=== PATIENT | female | born 1975 | race Hispanic/Latino ===

== ENCOUNTER 2017-05-28 13:27 | Inpatient (IN) | payer SELFPAY ==
[2017-05-28] MEDS ORDERED: Clindamycin/D5W 900 mg/50 ml Premix Bag ONE (15:04)
[2017-05-28] MEDS ORDERED: Levofloxacin 500 mg/D5W 100 ml Premix Bag ONE (15:04)
[2017-05-28] MEDS ORDERED: Midazolam HCl 2 mg/2 ml Vial ONE ×2 (15:07→15:23)
[2017-05-28] MEDS ORDERED: Bupivacaine PF 0.5% 30 ML VIAL ONE (15:20)
[2017-05-28] MEDS ORDERED: Fentanyl 100 MCG/2 ML VIAL ONE ×2 (15:23→16:37)
[2017-05-28] MEDS ORDERED: Lidocaine 2% PF 10 ML AMP (For Epidural Use) ONE (15:46)
[2017-05-28] MEDS ORDERED: Ondansetron HCl/PF 4 MG/2 ML Vial ONE (15:46)
[2017-05-28] MEDS ORDERED: Dexamethasone 20 MG/5 ML VIAL ONE (15:46)
[2017-05-28] MEDS ORDERED: Propofol 200 MG/20 ML VIAL ONE (15:46)
[2017-05-28] MEDS ORDERED: HYDROmorphone 2 MG/ML VIAL SLOW IVP PRN (16:09)
[2017-05-28] MEDS ORDERED: Ondansetron HCl/PF 4 MG/2 ML Vial IVP PRN (16:09)
[2017-05-28] MEDS ORDERED: Promethazine HCl 25 MG/ML VIAL SLOW IVP PRN (16:09)
[2017-05-28] MEDS ORDERED: Promethazine HCl 25 MG/ML VIAL IM PRN (16:09)
[2017-05-28] MEDS ORDERED: HYDROcodone/Acetaminophen 10/325 mg Tablet PO PRN (16:59)
[2017-05-28] MEDS ORDERED: Morphine Sulfate 2 MG/ML SYRINGE SLOW IVP PRN (16:59)
[2017-05-28] MEDS: Clindamycin/D5W 900 MG in Premix Bag 1 BAG IVPB SCH ×2 (19:35→23:59)
--- NOTE | 2017-05-28 20:06 | OP ---
DATE OF SURGERY: 05/28/2017 PREOPERATIVE DIAGNOSIS: Right medial ankle wound dehiscence. POSTOPERATIVE DIAGNOSIS: Right medial ankle wound dehiscence. SURGICAL PROCEDURE: Irrigation and debridement of right medial ankle wound. ANESTHESIA: General. SURGEON: Jesse Still M.D. SENIOR SOFTWARE TEST ENGINEER: Tucker John PA-C TOURNIQUET TIME: Zero. ESTIMATED BLOOD LOSS: 20 mL COMPLICATIONS: None. DRAINS: None. SPECIMEN: None. OUTCOME: Satisfactory. INDICATIONS: Patient is a 41-year-old lady status post intra-articular distal tibia fracture treate d with an external fixator until soft tissue swelling resolved and then converted to open reduction internal fixation. Patient has gone on to develop what appears to be a reaction to Vicryl sutures w ith multiple small stitch abscesses and one more centrally located stitch abscess that is now lead t o a wound dehiscence. We have attempted damp to dry dressing changes; however, she continues to hav e drainage and there is a screw visible in the wound. As such, she is now taken to the operating ro om for exploration, removal of screw and possible wound VAC application. DESCRIPTION OF PROCEDURE: After induction of general anesthesia, the patient was positioned supine on the OR table, then a sterile prep and drape was performed of the right lower extremity. A small superficial eschar from the lateral side of the ankle was debrided sharply and this had granulation tissue below it. On the medial side, there was a deeper area of wound dehiscence with some fibrinou s exudate at the base. This was sharply debrided and extended slightly, proximally and distally wit h a scalpel. The dissection included skin, subcutaneous tissue carried all the way down to the leve l of bone. The screw at the central portion of this wound dehiscence was removed without difficulty . The surrounding tissue appeared quite healthy and was bleeding with no significant erythema of th e surrounding skin. There were multiple other small areas of superficial stitch abscess type appear ance and these were unroofed and included all of the prior suture sites. At the completion of this, it was felt that we could not achieve primary closure of the larger medial wound and as such it was packed with saline soaked gauze and then a soft dressing applied to the ankle. She was then transf erred to recovery room in stable condition with plans to have a wound VAC placed tomorrow.
[2017-05-29 02:09] VITALS: BMI 30.9
[2017-05-29] MEDS ORDERED: Clindamycin/D5W 900 MG in Premix Bag 1 BAG IVPB SCH ×2 (06:00→23:59)
[2017-05-29] MEDS: HYDROcodone/Acetaminophen 10/325 mg Tablet PO PRN ×2 (06:18→15:44)
[2017-05-30] MEDS: HYDROcodone/Acetaminophen 10/325 mg Tablet PO PRN ×3 (05:52→19:37)
[2017-05-30] MEDS: diphenhydrAMINE HCl 25 MG CAP PO PRN ×2 (08:43→16:30)
[2017-05-31] MEDS: HYDROcodone/Acetaminophen 10/325 mg Tablet PO PRN ×4 (01:02→23:48)
[2017-06-01 08:45] VITALS: BP 141/91; TEMP 98.4
--- NOTE | 2017-06-05 21:41 | PQF ---
Zarina Carreon ANTHONY, MD [id number] SURG A- 3330 [id number] CLINICAL DOCUMENTATION CLARIFICATION FORM: POST DISCHARGE PLEASE FAX RESPONSE BACK TO [phone] Addendum to original discharge summary date: ____ Late entry note date: __ DATE: 06/05/17 ATTN: Jesse Still MD The following CLINICAL INDICATORS - SIGNS / SYMPTOMS are present in the medical record: OP Report Surgical Procedure: Irrigation and debridement of right medial ankle wound ...This was sharply debrided and extended slightly, proximally and distally with a scalpel RISKS: Right medial ankle wound dehisecence Abscess of sutures TREATMENTS: Irrigation and debridement of right medial ankle wound Please provide a response below if a more specific term indicating a diagnosis and/or acuity level for this condition can be identified. Please exercise your independent, professional judgment in responding to the clarification form. Clinical indicators are provided at the top of this form for your review. . For continuity of documentation, please document condition throughout progress notes and discharge summary. Thank you. [ ] Present on Admission (POA): [ ] Yes [ ] No [ ] Unable to determine [ ] Excisional Debridement: (Definition) Excisional debridement is the surgical removal or cutting away of devitalized tissue, necrosis, or slough. Excisional debridement can be performed in the operating room, emergency room, or at the patient's bedside. ([facility], Fourth 1987) [ ] Excised [ ] Removed [ ] Cut away [ ] Other: Depth / layer: (deepest layer of debridement): [ ] Skin/SubQ[ ] Fascia [ ] Muscle [ ] Bone Margins: (please specify): / x x Instruments used: [ ] Scissors [ ] Scalpel[ ] Curette[ ] Tweezers/ forceps [ ] Soft tissue clipper[ ] Other: [ ] Non-excisional Debridement: (Removal by flushing, brushing, or washing) ( Definition) Nonexcisional debridement is the non-operative brushing, irrigating , scrubbing, or washing of devitalized tissue, necrosis, or slough. Nonexcisional includes snipping of tissue followed by Neville tank therapy. Nonexcisional debridement may be performed by a nurse, therapist, or physician. ([facility], Fourth 1987) [ ] Incision and Drainage only (No Debridement): Depth:[ ] Skin & Sub Q only[ ] Into soft tissue [ ] Escharectomy [ ] Does not apply to this patient [ ] Unable to determine [ ] Other diagnosis: _ Physician/Provider Signature Date Time (This form is maintained as a part of the permanent medical record) 2014 [email or web address]. All Rights Reserved Obiormadai [email or web address]
== END 2017-06-01 08:50 | disposition home or self-care (01) | DRG 857 ==
LOC: SDC 13:27 → SURG A 16:59
PROVIDERS: ADMIT Orthopaedic Surgery; ATTEND Orthopaedic Surgery
PROC: 0JDQ0ZZ Extraction of Right Foot Subcutaneous Tissue and Fascia, Open Approach (ICD-10-PCS; principal; 2017-05-28)
PROC: 0SPF04Z Removal of Internal Fixation Device from Right Ankle Joint, Open Approach (ICD-10-PCS; 2017-05-28)
DX: T81.4XXA Infection following a procedure, initial encounter (principal); T81.33XA Disruption of traumatic injury wound repair, initial encounter; L02.415 Cutaneous abscess of right lower limb; Z87.891 Personal history of nicotine dependence; Y83.8 Other surgical procedures as the cause of abnormal reaction of the patient, or of later complication, without mention of misadventure at the time of the procedure; Y92.234 Operating room of hospital as the place of occurrence of the external cause
CPT/HCPCS: 36415; 84703; J1100; J1170; J1956; J2001; J2250; J2270; J2405; J2704; J3010; J3490; S0020

== ENCOUNTER 2017-06-02 11:53 | Outpatient (CLI) | payer SELFPAY ==
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
== END 2017-06-02 11:54 | disposition home or self-care (01) ==
LOC: WCC 11:53
PROVIDERS: ATTEND Family Medicine
DX: S81.801D Unspecified open wound, right lower leg, subsequent encounter (principal)
CPT/HCPCS: 97605; 99203; G0463

== ENCOUNTER 2017-06-05 13:47 | Outpatient (CLI) | payer OTHER ==
[~2017-06-05 13:47] MED LIST: Lidocaine 4% Topical Sol 50 ML BOT ONE; Sodium Chloride 0.9% 15 ML NEB ONE
== END 2017-06-05 13:48 | disposition home or self-care (01) ==
LOC: WCC 13:47
PROVIDERS: ATTEND Family Medicine
DX: T81.89XD Other complications of procedures, not elsewhere classified, subsequent encounter (principal)
CPT/HCPCS: 97605; A4218; J2001

== ENCOUNTER 2017-06-18 12:22 | Outpatient (CLI) | payer SELFPAY | END 2017-06-18 12:23 | disposition home or self-care (01) | LOC: WCC 12:22 | PROVIDERS: ATTEND Family Medicine | DX: S81.801D Unspecified open wound, right lower leg, subsequent encounter (principal) | CPT/HCPCS: 97602 ==

== ENCOUNTER 2017-07-24 13:15 | Outpatient (CLI) | payer SELFPAY | END 2017-07-24 13:16 | disposition home or self-care (01) | LOC: LABBT 13:15 | PROVIDERS: ATTEND Orthopaedic Surgery | DX: Z01.818 Encounter for other preprocedural examination (principal); T85.848A Pain due to other internal prosthetic devices, implants and grafts, initial encounter ==

== ENCOUNTER 2017-07-28 12:51 | Day surgery (SDC) | payer OTHER, SELFPAY ==
[2017-07-24 13:25] VITALS: BMI 25.2
[2017-07-28] MEDS ORDERED: Clindamycin/D5W 900 mg/50 ml Premix Bag ONE (13:26)
[2017-07-28] MEDS ORDERED: Midazolam HCl 2 mg/2 ml Vial ONE (14:03)
[2017-07-28] MEDS ORDERED: Fentanyl 100 MCG/2 ML VIAL ONE ×2 (14:03→15:23)
[2017-07-28] MEDS ORDERED: Lidocaine 1% PF 5 ML VIAL ONE (14:36)
[2017-07-28] MEDS ORDERED: Dexamethasone 20 MG/5 ML VIAL ONE (14:36)
[2017-07-28] MEDS ORDERED: Propofol 200 MG/20 ML VIAL ONE (14:36)
[2017-07-28] MEDS ORDERED: Ondansetron HCl/PF 4 MG/2 ML Vial ONE (14:36)
[2017-07-28] MEDS ORDERED: Ketorolac Tromethamine 30 MG/ML VIAL ONE (15:23)
[2017-07-28] MEDS ORDERED: Promethazine HCl 25 MG/ML VIAL ONE (15:29)
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
[2017-07-28] MEDS ORDERED: Morphine 4 MG/ML VIAL ONE (17:11)
[2017-07-28] MEDS ORDERED: HYDROcodone/Acetaminophen 5/325 mg Tablet ONE (17:27)
--- NOTE | 2017-07-28 19:11 | RAD ---
AP RIGHT ANKLE: A single fluoroscopic view in the OR is presented in the AP projection. History: Intraoperative imaging during internal fixation procedure. FINDINGS: There are plate and screws along the medial aspect of the distal tibia. Screw also transfixes the dis contreras fibula. [place]: [facility] [place]
== END 2017-07-28 18:00 | disposition home or self-care (01) ==
LOC: SDC 12:51
PROVIDERS: ATTEND Orthopaedic Surgery
PROC: 0SPF04Z Removal of Internal Fixation Device from Right Ankle Joint, Open Approach (ICD-10-PCS; principal; 2017-07-28)
DX: S82.871D Displaced pilon fracture of right tibia, subsequent encounter for closed fracture with routine healing (principal); Z88.0 Allergy status to penicillin; Z88.8 Allergy status to other drugs, medicaments and biological substances; Z96.7 Presence of other bone and tendon implants; Z98.890 Other specified postprocedural states; Z87.891 Personal history of nicotine dependence
CPT/HCPCS: 76000; 96374; J1100; J1885; J2001; J2250; J2270; J2405; J2550; J2704; J3010; J3490